=== PATIENT | female | born 1995 | race African-American/Black ===

== ENCOUNTER 2018-10-25 07:47 | Inpatient (IN) ==
[2018-10-25] MEDS ORDERED: ceFAZolin 2 GM Premix Inj 2 GM/50 ML PIGGYBACK IV.SIG SCH (09:05)
--- NOTE | 2018-10-25 09:05 | P.HPOB ---
Shaneka Draper Date: 0830 Initialization Date: 10/21/18 13:45 History of Present Illness Consult date: 10/21/18 Requesting Physician: Jan Farnklin Chief Complaint: 23-year-old at 40 weeks today presents for due to macrosomia History of Present Illness: 23-year-old at 40 -41 weeks final EDC 10/21/2018 presents for . I received a call from [facility] patient is not in labor estimated weight is 4526 g pelvis tested to 7.11 pounds without complication. care is very limited reports patient not compliant with appointments had missed quite a few and subsequently never had lab work nor did she have Glucola testing but random blood sugars have been within normal. Weeks Gestation:: 40 Para: 2 : 3 Review of Systems All other systems reviewed negative except as stated in HPI PMFSH - Social History I have reviewed the patient's Social History: Yes Medications and Allergies Allergies Allergy/AdvReac Type Severity Reaction Status Date / Time No Known Allergies Allergy Verified 07/31/18 18:38 Home Medications Medication Instructions Recorded Confirmed Type No Known Home Medications 07/31/18 07/31/18 History Exam Narrative: GENERAL: Well-nourished, well-developed patient. SKIN: Warm and dry. HEAD: Normocephalic and atraumatic. EYES: No scleral icterus. No injection or drainage. ENT: No nasal drainage noted. Mucous membranes pink. Airway patent. NECK: Supple, trachea midline. No JVD. CARDIOVASCULAR: Regular rate and rhythm without murmurs, gallops, or rubs. RESPIRATORY: Breath sounds equal bilaterally. No accessory muscle use. BREASTS: Bilateral exam showed no masses , no retractions, no nipple discharge. ABDOMEN/GI: Abdomen soft, non-tender, bowel sounds present, no rebound, no guarding Gravid to 40 weeks size Fundal Height: 40 GENITOURINARY: cx- 2-3/thick /high head floating FHT's: Reports good movement NST reactive EXTREMITIES: No cyanosis or edema. BACK: Nontender without obvious deformity. No CVA tenderness. NEUROLOGICAL: Awake and alert. Motor and sensory grossly within normal limits. Five out of 5 muscle strength in all muscle groups. Normal speech. Assessment and Plan - Diagnosis (1) Macrosomia affecting management of mother in third trimester Code(s): O36.63X0 - Maternal care for excessive growth, third trimester, not applicable or unspecified Status: Acute (2) Insufficient care in third trimester Code(s): O09.33 - Supervision of with insufficient care, third trimester Status: Acute (3) 40 weeks gestation of Code(s): Z3A.40 - 40 weeks gestation of Status: Acute - Plan Please note patient also goes by last name which is her name RADHA. Patient offered a primary delivery secondary to estimated weight of 4500 g. Discussed with patient current ACOG guidelines-with nondiabetic patients estimated weight of greater than 5000 g offered and with diabetic patients estimated weight of greater than 4500 g offered. In her particular case we do not have any records documenting supporting or disproving that she may have been a gestational diabetic. She also reports that she feels that this baby is larger than her previous 2. Complications associated with delivery risk of injury to the bowel, bladder, nerves, blood vessels, ureters ,any structures in the abdomen or pelvis including the fetus. Complications associated with anesthesia of the surgery itself ,reoperation risk ,infection, hemorrhage. Unforeseen injury. As well as with estimated weight this may be an underestimate or it may be an overestimate therefore she may have had the delivery whereby she may have been able to deliver from below. She was made aware if she desired and declined a she would need to present in labor we would not induce her labor but even with this being the case she does run the risk of palsy trauma maternal pelvic trauma. We discussed the incidence of brachial plexus injuries and permanent sequelae. Patient wishes to discuss with her . She is quite well informed, educated asks questions appropriately. Expresses verbal understanding of all stated above. She is requesting that the surgery be performed after the . She is scheduled for September 2018 unless she presents in labor then will perform sooner. She has not requesting tubal sterilization states her will have a vasectomy after this delivery. Also note is made aware that patient has not performed any of her labs she was given a prescription and escorted to the lab to have them performed today.
[2018-10-25] MEDS ORDERED: Citric Acid/Sodium Citrate Liq 30 ML UDC PO SCH (09:15)
[2018-10-25 09:41] LABS: Baso % (Auto) 0.2 % (0.0-2.0); Eos % (Auto) 0.2 % (0.0-4.0); Hematocrit 26.3 % (35.0-46.0); Hemoglobin 8.3 gm/dL (11.6-15.3); Lymph # (Auto) 1.8 th/mm3 (1.0-4.8); Lymph % (Auto) 19.6 % (9.0-44.0); Mean Corpuscular HGB Conc 31.4 % (32.0-36.0); Mean Corpuscular Hemoglobin 21.9 pg (27.0-34.0); Mean Corpuscular Volume 69.8 fL (80.0-100.0); Mean Platelet Volume 8.4 fL (7.0-11.0); Mono # (Auto) 0.9 th/mm3 (0.0-0.9); Mono % (Auto) 9.6 % (0.0-8.0); Neut # (Auto) 6.3 th/mm3 (1.8-7.7); Neut % (Auto) 70.4 % (16.0-70.0); Platelet Count 220 th/mm3 (150-450); Red Blood Count 3.77 mil/mm3 (4.00-5.30); Red Cell Distribution Width 16.3 % (11.6-17.2)
[2018-10-25 09:47] LABS: Bacteria,Urine Rare /hpf; Bilirubin,Urine Negative (Negative); Clarity,Urine Hazy (Clear); Color,Urine Yellow (Yellw/Straw); Glucose,Urine (UA) Negative (Negative); Leukocyte Esterase,Urine Large (Negative); Mucus,Urine Few /lpf (Occasional); Nitrite,Urine Negative (Negative); Specific Gravity,Urine 1.015 (1.002-1.035); Squamous Epithelial Cell,Urine 3 /hpf (0-5)
[2018-10-25] MEDS ORDERED: Morphine Sulfate PF Inj 5 MG/10 ML Ampul ONE (09:55)
[2018-10-25] MEDS ORDERED: Naloxone Inj 0.4 MG/ML Vial IV.PUSH PRN (11:55)
[2018-10-25] MEDS ORDERED: Acetaminophen 325 MG Tablet PO PRN (12:34)
[2018-10-25] MEDS ORDERED: Oxytocin 30 Units/500ml Premix 30 UNITS/500 ML BAG IV.SIG ONE (12:34)
--- NOTE | 2018-10-25 12:42 | P.OP ---
- Preoperative Diagnosis (1) Macrosomia affecting management of mother in third trimester (2) 40 weeks gestation of - Postoperative Diagnosis (1) Macrosomia affecting management of mother in third trimester (2) 40 weeks gestation of Date of procedure: 10/25/18 Procedure: Procedure: Primary lower uterine segment transverse section Patient was taken to the operating room and after demonstration of a satisfactory spinal anesthetic was prepped and draped in the dorsal supine position. The skin was incised transversely and the subcutaneous tissue was sharply dissected away down to the level of the fascia which was nicked in the midline and extended bilaterally with scissors. The fascia was from the underlying muscle with sharp and blunt dissection. Peritoneum was bluntly entered and the muscles were bluntly in the midline. A transverse hysterotomy was made in lower uterine segment and membranes were encountered and ruptured with clear fluid noted. The vertex was elevated out of the pelvic inlet and delivered easily through the hysterotomy. With fundal pressure and gentle traction remainder the followed easily. Delayed cord clamping was accomplished. The fundus was then massaged until the placenta passed spontaneously. The uterine cavity was wiped with a moist lap sponge. Cord blood sample was obtained. The hysterotomy was then closed with a running suture of 0 Monocryl. After observing excellent hemostasis normal- appearing tubes ovaries and uterus the paracolic gutters and posterior cul-de- sac were evacuated of amniotic fluid and blood. The fascia was then closed anteriorly with #1 PDS. The subcutaneous tissue was closed with 3-0 Vicryl and skin with 4-0 Vicryl and tissue glue. Anesthesia: spinal Surgeon: Arturo Graff MD Inbound Sales Manager: Arturo Graff Estimated blood loss (mL): 600 Pathology: other (Cord blood sample) Operation and Findings: Primary lower uterine segment transverse section Normal appearing tubes and ovaries and uterus, viable male with Apgars of 8 and 9 weighing 4110 g
[2018-10-25] MEDS ORDERED: Oxytocin 30 Units/500ml Premix 30 UNITS/500 ML BAG ONE (13:30)
[2018-10-25] MEDS ORDERED: Oxytocin 30 Units/500ml Premix 30 UNITS/500 ML BAG IV.SIG PRN (17:34)
[2018-10-26 05:59] LABS: Baso % (Auto) 0.2 % (0.0-2.0); Hematocrit 22.6 % (35.0-46.0); Hemoglobin 7.1 gm/dL (11.6-15.3); Lymph # (Auto) 1.7 th/mm3 (1.0-4.8); Mean Corpuscular HGB Conc 31.2 % (32.0-36.0); Mean Corpuscular Hemoglobin 21.8 pg (27.0-34.0); Mean Corpuscular Volume 69.8 fL (80.0-100.0); Mean Platelet Volume 8.2 fL (7.0-11.0); Mono # (Auto) 1.2 th/mm3 (0.0-0.9); Mono % (Auto) 8.9 % (0.0-8.0); Neut # (Auto) 10.2 th/mm3 (1.8-7.7); Neut % (Auto) 77.9 % (16.0-70.0); Platelet Count 205 th/mm3 (150-450); Red Blood Count 3.24 mil/mm3 (4.00-5.30); Red Cell Distribution Width 16.2 % (11.6-17.2)
--- NOTE | 2018-10-26 06:13 | P.PNOB ---
Subjective Post op day: 1 Interval history: Postoperative day number 1. AFVSS overnight. Pain well-controlled with Tylenol. Incision not draining. No active bleeding. Decreasing lochia. Ibarra catheter still in place due to inability to ambulate following epidural yesterday. Patient states that she started getting feeling back in both of her legs and is currently able to move her legs. No breast tenderness. She is feeding the baby via breast. Appetite good. No nausea or vomiting. Able to tolerate dinner last night without issue. Not passing flatus. No bowel movements. Denies calf pain, shortness of breath, or cough. Otherwise, she is doing well this morning and has no other complaints. Objective Vital Signs/I&O: Vital Signs 10/25/18 09:23 10/25/18 09:26 10/25/18 11:07 Temperature 98.9 F Pulse Rate 82 87 Respiratory Rate 18 19 Blood Pressure 123/71 115/51 L 10/25/18 11:10 10/25/18 12:45 10/25/18 12:47 Temperature 99.0 F 97.9 F Pulse Rate 79 87 Respiratory Rate 17 17 Blood Pressure 110/51 L 111/52 L 10/25/18 13:14 10/25/18 13:19 10/25/18 14:00 Temperature Pulse Rate 71 68 70 Respiratory Rate 16 17 16 Blood Pressure 103/59 L 121/58 L 115/59 L 10/25/18 20:00 10/26/18 00:00 10/26/18 04:00 Temperature 98.4 F 98.5 F 98.6 F Pulse Rate 83 70 55 L Respiratory Rate 18 18 18 Blood Pressure 118/66 108/72 108/51 L Intake & Output 10/25/18 10/25/18 10/26/18 06:59 18:59 06:59 Intake Total 1000 / 1000 100 / 100 Balance 1000 / 1000 100 / 100 Weight 91 kg Intake: IV 1000 / 1000 100 / 100 LR 1000 mL Inj 1,000 ML @ 150 1000 / 1000 mls/hr IV.CONT .Q6H40M [facility]ITH Rx#: [id number] Ofirmev Inj 1,000 mg In 100 ml 100 / 100 @ 400 mls/hr IV.SIG Q6H PRN Rx# :[id number] Other: Weight On Admission 91 kg Result Diagrams: 10/26/18 05:26 Objective Remarks: GENERAL: Well-nourished, well-developed patient. CARDIOVASCULAR: Regular rate and rhythm without murmurs, gallops, or rubs. RESPIRATORY: Breath sounds equal bilaterally. No accessory muscle use. ABDOMEN/GI: Abdomen soft, non-tender, bowel sounds present. Incision: Clean, dry and intact. Fundus: Firm, non-tender at umbilicus. GENITOURINARY: Light to moderate bleeding. EXTREMITIES: No cyanosis or edema, non-tender, without signs of DVT. Medications and IVs: Active Medications Citric Acid/Sodium Citrate (Sodium Citrate/Citric Acid Liq) 30 ml PO END USER CONSULTANT [facility] Stop: 10/29/18 09:14 Last Admin: 10/25/18 10:38 Dose: 30 ml Diphenhydramine HCl (Benadryl Inj) 25 mg IV.PUSH Q6H PRN PRN Reason: MILD TO MODERATE ITCHING Stop: 10/26/18 11:54 Diphenhydramine HCl (Benadryl) 50 mg PO Q6H PRN PRN Reason: MILD TO MODERATE ITCHING Stop: 10/26/18 11:54 Diphtheria/Pertussis/Tetanus Vacc (Boostrix Vaccine Inj) 0.5 ml IM .ONCE ONE Stop: 10/26/18 16:01 Cefazolin Sodium/Dextrose (Ancef 2 Gm Premix Inj) 2 gm in 50 mls @ 100 mls/hr IV.SIG END USER CONSULTANT [facility] Stop: 10/29/18 09:04 Lactated Ringer's (Lr 1000 Ml Inj) 1,000 mls @ 150 mls/hr IV.CONT .Q6H40M [facility] Last Admin: 10/25/18 22:00 Dose: 150 mls/hr Oxytocin (Pitocin 30 Units/Ns 500 Ml Premix) 30 units in 500 mls @ 100 mls/hr IV.SIG UNSCH PRN PRN Reason: Heavy bleeding Lactated Ringer's (Lr 1000 Ml Inj) 1,000 mls @ 100 mls/hr IV.CONT .Q10H [facility] Stop: 10/26/18 13:33 Last Admin: 10/25/18 19:04 Dose: Not Given Acetaminophen (Ofirmev Inj) 1,000 mg in 100 mls @ 400 mls/hr IV.SIG Q6H PRN PRN Reason: PAIN SCALE 1 TO 10 Last Admin: 10/26/18 01:56 Dose: 400 mls/hr Ibuprofen (Motrin) 800 mg PO Q8H PRN PRN Reason: cramping Measles/Mumps/Rubella Vaccine Live (M-M-R Ii Vaccine Inj) 0.5 ml SQ .ONCE ONE Stop: 10/26/18 16:01 Miscellaneous Information ([facility] Nursing Information) 1 each OTHER UNSCH PRN PRN Reason: SEE LABEL COMMENTS Stop: 10/26/18 11:54 Miscellaneous Information ([facility] Nursing Information) 1 each OTHER UNSCH PRN PRN Reason: SEE LABEL COMMENTS Stop: 10/26/18 11:54 Naloxone HCl (Narcan Inj) 0.4 mg IV.PUSH UNSCH PRN PRN Reason: SEE LABEL COMMENTS Stop: 10/26/18 11:54 Ondansetron HCl (Zofran Inj) 4 mg IV.PUSH Q6H PRN PRN Reason: NAUSEA OR VOMITING Last Admin: 10/25/18 17:35 Dose: 4 mg Senna/Docusate Sodium (Alfreda-Colace) 2 tab PO Q12H PRN PRN Reason: CONSTIPATION Sodium Chloride (Ns Flush) 2 ml IV.FLUSH BID [facility] Last Admin: 10/26/18 01:57 Dose: Not Given Sodium Chloride (Ns Flush) 2 ml IV.FLUSH PRN PRN PRN Reason: FLUSH AFTER USING IV ACCESS Assessment and Plan - Diagnosis (1) Delivery of by section Code(s): O82 - Encounter for delivery without indication Status: Acute (2) 40 weeks gestation of Code(s): Z3A.40 - 40 weeks gestation of Status: Acute - Plan 23 y/o female who is POD# 1 s/p CXN for borderline macrosomia. -Continue routine care. -Tylenol and Motrin PRN pain -H&H 7.1, asymptomatic. Will start iron and vitamin C supplementation. -Ibarra catheter still in place. Will trial removal today, once patient is able to ambulate. -Encouraged OOB. -Advised pelvic rest for 6 wks. -Will need a f/u appt. in 1 wk for incision check. -Re: ctrl: has planned to undergo vasectomy. Patient states that she will continue to consider other contraceptive options until the surgery is performed. Will discuss further with PCP. -Anticipate discharge in 1-2 days. nii OB attending, Dr. Graff - Attending Attestation The exam, history, and the medical decision-making described in the above note were completed with the assistance of the resident physician. I reviewed and agree with the findings presented. I attest that I had a [id number] encounter with the patient on the same day, and personally performed and documented my assessment and findings in the medical record.
[2018-10-26] MEDS ORDERED: Naloxone Inj 0.4 MG/ML Vial IV.PUSH PRN (08:23)
[2018-10-26] MEDS ORDERED: Acetaminophen 325 MG Tablet PO PRN (09:00)
[2018-10-26] MEDS: Ascorbic Acid 500 MG Tablet PO SCH (10:37)
[2018-10-26] MEDS: Ferrous Sulfate 325 MG Tablet PO SCH ×3 (10:37→21:56)
[2018-10-26] MEDS ORDERED: Diphtheria/Tetanus/Pertussis Vaccine Inj 0.5 ML Syringe IM ONE (16:00)
[2018-10-26] MEDS ORDERED: Measles/Mumps/Rubella Vaccine Inj 0.5 ML Vial SQ ONE (16:00)
[2018-10-26] MEDS: Senna/Docusate Sodium 8.6/50 MG Tablet PO PRN (21:12)
[2018-10-27] MEDS: Ascorbic Acid 500 MG Tablet PO SCH (08:24)
[2018-10-27] MEDS: Ferrous Sulfate 325 MG Tablet PO SCH ×3 (08:24→18:50)
[2018-10-27] MEDS: Senna/Docusate Sodium 8.6/50 MG Tablet PO PRN ×2 (08:25→21:10)
--- NOTE | 2018-10-27 08:32 | P.PNOB ---
Subjective Post op day: 2 Interval history: Postoperative day number 2. AFVSS overnight. Pain well-controlled with Tylenol. Incision not draining. No active bleeding. Decreasing lochia. Ibarra catheter removed yesterday. Denies dysuria. No breast tenderness. She is feeding the baby via breast. Appetite good. No nausea or vomiting. Able to tolerate dinner last night without issue. Not passing flatus. No bowel movements. Denies calf pain, shortness of breath, or cough. Otherwise, she is doing well this morning and has no other complaints. Objective Vital Signs/I&O: Vital Signs 10/26/18 20:00 10/27/18 07:44 Temperature 98.2 F 97.6 F Pulse Rate 68 83 Respiratory Rate 18 18 Blood Pressure 116/61 105/56 L Intake & Output 10/26/18 10/27/18 10/27/18 18:59 06:59 18:59 Intake Total 100 / 100 Balance 100 / 100 Intake: IV 100 / 100 Ofirmev Inj 1,000 mg In 100 ml 100 / 100 @ 400 mls/hr IV.SIG Q6H PRN Rx# :[id number] Result Diagrams: 10/26/18 05:26 Objective Remarks: GENERAL: Well-nourished, well-developed patient. CARDIOVASCULAR: Regular rate and rhythm without murmurs, gallops, or rubs. RESPIRATORY: Breath sounds equal bilaterally. No accessory muscle use. ABDOMEN/GI: Abdomen soft, non-tender, bowel sounds present. Incision: Clean, dry and intact. Fundus: Firm, non-tender at umbilicus. GENITOURINARY: Light to moderate bleeding. EXTREMITIES: mild pedal edema, non-tender, without signs of DVT. Medications and IVs: Active Medications Acetaminophen (Tylenol) 650 mg PO Q4H PRN PRN Reason: PAIN SCALE 1 TO 2 Ascorbic Acid (Vitamin C) 500 mg PO DAILY [facility] Last Admin: 10/27/18 08:24 Dose: 500 mg Citric Acid/Sodium Citrate (Sodium Citrate/Citric Acid Liq) 30 ml PO CUSTOMER MARKETING ASSISTANT [facility] Stop: 10/29/18 09:14 Last Admin: 10/25/18 10:38 Dose: 30 ml Ferrous Sulfate (Ferosul) 325 mg PO TID [facility] Last Admin: 10/27/18 08:24 Dose: Not Given Cefazolin Sodium/Dextrose (Ancef 2 Gm Premix Inj) 2 gm in 50 mls @ 100 mls/hr IV.SIG CUSTOMER MARKETING ASSISTANT [facility] [place] Stop: 10/29/18 09:04 Lactated Ringer's (Lr 1000 Ml Inj) 1,000 mls @ 150 mls/hr IV.CONT .Q6H40M [facility] Last Admin: 10/27/18 08:10 Dose: Not Given Oxytocin (Pitocin 30 Units/Ns 500 Ml Premix) 30 units in 500 mls @ 100 mls/hr IV.SIG UNSCH PRN PRN Reason: Heavy bleeding Ibuprofen (Motrin) 800 mg PO Q8H PRN PRN Reason: cramping Last Admin: 10/27/18 05:15 Dose: 800 mg Naloxone HCl (Narcan Inj) 0.1 mg IV.PUSH Q2M PRN PRN Reason: for opiate reversal Ondansetron HCl (Zofran Inj) 4 mg IV.PUSH Q6H PRN PRN Reason: NAUSEA OR VOMITING Last Admin: 10/25/18 17:35 Dose: 4 mg Oxycodone/Acetaminophen (Percocet 5/325 Mg) 1 tab PO Q4H PRN PRN Reason: PAIN SCALE 3 TO 5 Last Admin: 10/26/18 09:15 Dose: 1 tab Oxycodone/Acetaminophen (Percocet 5/325 Mg) 2 tab PO Q4H PRN PRN Reason: PAIN SCALE 6 TO 10 Last Admin: 10/27/18 05:16 Dose: 2 tab Senna/Docusate Sodium (Alfreda-Colace) 2 tab PO Q12H PRN PRN Reason: CONSTIPATION Last Admin: 10/27/18 08:25 Dose: 1 tab Sodium Chloride (Ns Flush) 2 ml IV.FLUSH BID [facility] Last Admin: 10/27/18 08:25 Dose: 2 ml Sodium Chloride (Ns Flush) 2 ml IV.FLUSH PRN PRN PRN Reason: FLUSH AFTER USING IV ACCESS Assessment and Plan - Diagnosis (1) Delivery of by section Code(s): O82 - Encounter for delivery without indication Status: Acute (2) 40 weeks gestation of Code(s): Z3A.40 - 40 weeks gestation of Status: Acute - Plan 23 y/o female who is POD# 2 s/p CXN for borderline macrosomia. -Continue routine care. -Tylenol and Motrin PRN pain -H&H 7.1, asymptomatic. Continue iron and vitamin C supplementation. -Encouraged OOB. -Advised pelvic rest for 6 wks. -Will need a f/u appt. in 1 wk for incision check. -Re: ctrl: has planned to undergo vasectomy. Patient states that she will continue to consider other contraceptive options until the surgery is performed. Will discuss further with PCP. -Anticipate discharge tomorrow. nii OB attending, Dr. Asencio
[2018-10-27 10:37] LABS: Hematocrit 23.5 % (35.0-46.0); Hemoglobin 7.2 gm/dL (11.6-15.3)
--- NOTE | 2018-10-28 07:45 | P.PNOB ---
Subjective Post op day: 3 Interval history: Patient seen and examined this morning. AFVSS overnight. Postoperative day #3. Pain well controlled. Incision not draining. Decreased lochia. Denies dysuria. No breast tenderness. Appetite good. No nausea or vomiting. Positive flatus. Ambulating well. Denies calf pain, shortness of breath, or cough. She otherwise has no other complaints or concerns this morning. Objective Vital Signs/I&O: Vital Signs 10/27/18 20:00 Temperature 98.1 F Pulse Rate 76 Respiratory Rate 18 Blood Pressure 108/56 L Result Diagrams: 10/27/18 10:26 Objective Remarks: GENERAL: Well-nourished, well-developed patient. CARDIOVASCULAR: Regular rate and rhythm without murmurs, gallops, or rubs. RESPIRATORY: Breath sounds equal bilaterally. No accessory muscle use. ABDOMEN/GI: Abdomen soft, non-tender, bowel sounds present. Incision: Clean, dry and intact. Fundus: Firm, non-tender at umbilicus. GENITOURINARY: Light bleeding. EXTREMITIES: No cyanosis or edema, non-tender, without signs of DVT. Medications and IVs: Active Medications Acetaminophen (Tylenol) 650 mg PO Q4H PRN PRN Reason: PAIN SCALE 1 TO 2 Ascorbic Acid (Vitamin C) 500 mg PO DAILY [facility] Last Admin: 10/27/18 08:24 Dose: 500 mg Citric Acid/Sodium Citrate (Sodium Citrate/Citric Acid Liq) 30 ml PO BARREL CAP SETTER [facility] Stop: 10/29/18 09:14 Last Admin: 10/25/18 10:38 Dose: 30 ml Ferrous Sulfate (Ferosul) 325 mg PO TID [facility] Last Admin: 10/27/18 18:50 Dose: Not Given Cefazolin Sodium/Dextrose (Ancef 2 Gm Premix Inj) 2 gm in 50 mls @ 100 mls/hr IV.SIG [employer]REL [employer] SETTER [facility] Stop: 10/29/18 09:04 Lactated Ringer's (Lr 1000 Ml Inj) 1,000 mls @ 150 mls/hr IV.CONT .Q6H40M [facility] Last Admin: 10/27/18 21:35 Dose: Not Given Oxytocin (Pitocin 30 Units/Ns 500 Ml Premix) 30 units in 500 mls @ 100 mls/hr IV.SIG UNSCH PRN PRN Reason: Heavy bleeding Ibuprofen (Motrin) 800 mg PO Q8H PRN PRN Reason: cramping Last Admin: 10/27/18 22:30 Dose: 800 mg Naloxone HCl (Narcan Inj) 0.1 mg IV.PUSH Q2M PRN PRN Reason: for opiate reversal Ondansetron HCl (Zofran Inj) 4 mg IV.PUSH Q6H PRN PRN Reason: NAUSEA OR VOMITING Last Admin: 10/25/18 17:35 Dose: 4 mg Oxycodone/Acetaminophen (Percocet 5/325 Mg) 1 tab PO Q4H PRN PRN Reason: PAIN SCALE 3 TO 5 Last Admin: 10/26/18 09:15 Dose: 1 tab Oxycodone/Acetaminophen (Percocet 5/325 Mg) 2 tab PO Q4H PRN PRN Reason: PAIN SCALE 6 TO 10 Last Admin: 10/27/18 22:32 Dose: 2 tab Senna/Docusate Sodium (Alfreda-Colace) 2 tab PO Q12H PRN PRN Reason: CONSTIPATION Last Admin: 10/27/18 21:10 Dose: 1 tab Sodium Chloride (Ns Flush) 2 ml IV.FLUSH BID [facility] Last Admin: 10/27/18 21:11 Dose: 2 ml Sodium Chloride (Ns Flush) 2 ml IV.FLUSH PRN PRN PRN Reason: FLUSH AFTER USING IV ACCESS Assessment and Plan - Diagnosis (1) Delivery of by section Code(s): O82 - Encounter for delivery without indication Status: Acute - Plan 23 y/o female who is POD# 3 s/p CXN for borderline macrosomia. -Continue routine care. - Motrin and Percocet PRN pain. Patient given prescription for Percocet (18 tabs) PRN for pain, E forced reviewed with Dr. Graff -H&H 7.1, asymptomatic. Continue iron and vitamin C supplementation. -Encouraged OOB. -Advised pelvic rest for 6 wks. -Will need a f/u appt. in 1 wk for incision check. -Re: ctrl: has planned to undergo vasectomy. Will discuss further with PCP. -Anticipate discharge today. dw OB attending, Dr. Graff - Attending Attestation The exam, history, and the medical decision-making described in the above note were completed with the assistance of the resident physician. I reviewed and agree with the findings presented. I attest that I had a [id number] encounter with the patient on the same day, and personally performed and documented my assessment and findings in the medical record.
[2018-10-28] MEDS: Ferrous Sulfate 325 MG Tablet PO SCH ×2 (09:05→14:58)
[2018-10-28] MEDS: Ascorbic Acid 500 MG Tablet PO SCH (09:05)
[2018-10-28] MEDS: Senna/Docusate Sodium 8.6/50 MG Tablet PO PRN (09:05)
== END 2018-10-28 19:08 | disposition home or self-care (01) | DRG 788 ==
LOC: H2E 07:47 → H1EA 13:46
PROVIDERS: ADMIT Obstetrics & Gynecology; ATTEND Obstetrics & Gynecology
CPT/HCPCS: 59025; 80307; 81001; 85014; 85018; 85025; 86850; 86900; 86901; 90715; G0481; G0483; J0131; J2274; J2405; J2590; J7120